=== PATIENT | female | born 1945 | race Caucasian/White ===

== ENCOUNTER 2019-08-10 09:45 | Outpatient (CLI) | payer MEDICARE, SELFPAY ==
--- NOTE | ~2019-08-10 | MM_ITS ---
EXAMINATION: MM screening [facility] BI w norma HISTORY: Screening mammogram TECHNIQUE: Craniocaudal and mediolateral oblique 3-D tomosynthesis images were obtained and synthetic 2-D images were generated. CAD analysis was submitted and interpreted. COMPARISON: Comparison to multiple prior studies sequentially, with oldest reviewed study dated 06/06. BREAST PARENCHYMAL COMPOSITION: There are scattered areas of fibroglandular density. FINDINGS: Stable benign-appearing left breast mass. There is no evidence of suspicious mass, calcific ation, or architectural distortion to suggest malignancy in either breast. There has been no suspicio us interval change. IMPRESSION: 1. No mammographic evidence of malignancy. 2. Recommend routine screening mammography in one year. BI-RADS Category 2: Benign finding(s). Reviewed, dictated and finalized at location A.
== END 2019-08-10 09:46 | disposition home or self-care (01) ==
PROVIDERS: PCP Internal Medicine; Visit Provider Obstetrics & Gynecology
DX: Z12.31 Encounter for screening mammogram for malignant neoplasm of breast (principal)
CPT/HCPCS: 77063; 77067

== ENCOUNTER 2020-08-14 09:54 | Outpatient (CLI) | payer MEDICARE, SELFPAY ==
--- NOTE | ~2020-08-14 | MM_ITS ---
EXAMINATION: MM screening [facility] BI w norma HISTORY: Screening mammogram TECHNIQUE: Craniocaudal and mediolateral oblique 3-D tomosynthesis images were obtained and synthetic 2-D images were generated. CAD analysis was submitted and interpreted. COMPARISON: 08/10/2019, 07/22/2018, 06/18/2017 BREAST PARENCHYMAL COMPOSITION: The breasts are almost entirely fatty. FINDINGS: There is no evidence of suspicious mass, calcification, or architectural distortion to sugg est malignancy in either breast. There has been no suspicious interval change. IMPRESSION: 1. No mammographic evidence of malignancy. 2. Recommend routine screening mammography in one year. BI-RADS Category 1: Negative Reviewed, dictated and finalized at location A.
== END 2020-08-14 09:55 | disposition home or self-care (01) ==
LOC: ANHIMG 09:58
PROVIDERS: PCP Physician Assistant; Visit Provider Obstetrics & Gynecology
DX: Z12.31 Encounter for screening mammogram for malignant neoplasm of breast (principal)
CPT/HCPCS: 77063; 77067

== ENCOUNTER 2021-09-27 10:12 | Outpatient (CLI) | payer MEDICARE, SELFPAY ==
--- NOTE | ~2021-09-27 | MM_ITS ---
EXAMINATION: MM screening [facility] BI w norma HISTORY: Screening mammogram TECHNIQUE: Craniocaudal and mediolateral oblique 3-D tomosynthesis images were obtained and synthetic 2-D images were generated. CAD analysis was submitted and interpreted. COMPARISON: 08/14/2020, 08/10/2019, 07/22/2018 bilateral screening mammogram examinations BREAST PARENCHYMAL COMPOSITION: There are scattered areas of fibroglandular density. FINDINGS: There is no evidence of suspicious mass, calcification, or architectural distortion to sugg est malignancy in either breast. There has been no suspicious interval change. IMPRESSION: 1. No mammographic evidence of malignancy. 2. Recommend routine screening mammography in one year. BI-RADS Category 1: Negative Reviewed, dictated and finalized at location A.
== END 2021-09-27 10:13 | disposition home or self-care (01) ==
LOC: ANHIMG 10:15
PROVIDERS: PCP Physician Assistant; Visit Provider Obstetrics & Gynecology
DX: Z12.31 Encounter for screening mammogram for malignant neoplasm of breast (principal)
CPT/HCPCS: 77063; 77067

== ENCOUNTER 2023-01-20 09:50 | Outpatient (CLI) | payer MEDICARE, SELFPAY ==
--- NOTE | ~2023-01-20 | MM_ITS ---
EXAMINATION: MM screening [facility] BI w [facility]a HISTORY: Screening TECHNIQUE: Craniocaudal and mediolateral oblique 3-D tomosynthesis images were obtained and synthetic 2-D images were generated. CAD analysis was submitted and interpreted. COMPARISON: Comparison to multiple prior studies sequentially, with oldest reviewed study dated 09/2016. BREAST PARENCHYMAL COMPOSITION: Breast composed of scattered areas of fibroglandular density FINDINGS: There is no evidence of suspicious mass, calcification, or architectural distortion to sugg est malignancy in either breast. There has been no suspicious interval change. IMPRESSION: 1. No mammographic evidence of malignancy. 2. Recommend routine screening mammography in one year. BI-RADS Category 1: Negative Reviewed, dictated and finalized at location A. N CERAMIST
== END 2023-01-20 09:51 | disposition home or self-care (01) ==
PROVIDERS: PCP Physician Assistant; Visit Provider Obstetrics & Gynecology
DX: Z12.31 Encounter for screening mammogram for malignant neoplasm of breast (principal)
CPT/HCPCS: 77063; 77067

== ENCOUNTER 2024-03-19 11:37 | Outpatient (CLI) | payer MEDICARE, SELFPAY ==
--- NOTE | ~2024-03-19 | MM_ITS ---
EXAMINATION: MM screening [facility] BI w [facility] HISTORY: Screening TECHNIQUE: Craniocaudal and mediolateral oblique 3-D tomosynthesis images were obtained and synthetic 2-D images were generated. CAD analysis was submitted and interpreted. COMPARISON: Comparison to multiple prior studies sequentially, with oldest reviewed study dated 06/18. BREAST PARENCHYMAL COMPOSITION: Not dense: There are scattered areas of fibroglandular density. FINDINGS: There is no evidence of suspicious mass, calcification, or architectural distortion to sugg est malignancy in either breast. There has been no suspicious interval change. IMPRESSION: 1. No mammographic evidence of malignancy. 2. Recommend routine screening mammography in one year. BI-RADS Category 1: Negative Reviewed, dictated and finalized at location B. HOUSE PICKER
--- OUTSIDE RECORDS SUMMARY | 2024-03-19 11:44 | XMS_ITS | Referral Summary ---
Author Organization [facility] [address] [place] [phone] Care Team Providers Care Electric Crane Operator Name Role Phone Juice Howard Primary Care Provider Encounters Date Type Department Care Team Description 01/11/2024 9:15 AM DIRECTOR OF MARKETING OPERATIONS Office Visit [facility] Medical [facility] Diabetes and Endocrinology [address] [place] [phone] Shannen Austin MD Hyperthyroidism (Primary Dx); Tremors of nervous system from Last 3 Months Allergies Active Allergy Reactions Criticality Noted Date Comments Amoxicillin Hives Medium 01/27/2023 Medications methIMAzole (TAPAZOLE) 10 mg tabletIndicatio ns:Hyperthyroid ism Take 1.5 tablets (15 mg total) by mouth daily 135 tablet 01/11/2024 Active propranoloL (INDERAL) 10 mg tabletIndicatio ns:Hyperthyroid ism,Tremors of nervous system Take 1 tablet (10 mg total) by mouth 2 (two) times a day 180 tablet 01/11/2024 Active Active Problems Problem Noted Date Diagnosed Date Tremors of nervous system 06/30/2023 Assessment & Plan (01/11/2024 9:41 AM DIRECTOR OF MARKETING OPERATIONS): Continue propranolol Assessment & Plan (06/30/2023 1:05 PM CDT): Worsening hand tremors off propranolol Suspect underlying essential tremor Restart propranolol 10 mg 1 tablet oral twice a day Hyperthyroidism 02/04/2023 Assessment & Plan (01/11/2024 9:40 AM DIRECTOR OF MARKETING OPERATIONS): History of hyperthyroidism most likely due to Graves disease Chronic, uncontrolled, worsening Reviewed and discussed patient's recent thyroid function lab results Plan to increase methimazole to 15 mg oral daily Repeat labs in 2 months and every 2 months Follow-up in 6 months Assessment & Plan (06/30/2023 1:05 PM CDT): Chronic, uncontrolled, progressively improving but still not at goal Reviewed and explain patient's recent thyroid lab results Based on her recent thyroid lab results advised patient to decrease her methimazole to 10 mg oral 4 days a week and take 1.5 tablet Thursday and Thursday Repeat thyroid function test in 6 weeks Assessment & Plan (04/01/2023 9:57 AM DIRECTOR OF MARKETING OPERATIONS): History of hyperthyroidism most likely due to Graves disease Chronic, uncontrolled, progressively improving Reviewed patient recent thyroid labs Plan to decrease propranolol to half a tablet oral twice a day and advised to stop in 10 days Decrease methimazole to 15 mg oral daily Repeat thyroid function test in 6 weeks Assessment & Plan (02/04/2023 5:18 PM DIRECTOR OF MARKETING OPERATIONS): Chronic, poorly controlled, worsening hyperthyroidism Performed thyroid ultrasound - noted diffuse hypervascularity Pt most likely has Grave's disease Recheck TFT include thyroid antibody Discussed Rx options - anti thyroid meds vs CHAWLA therapy vs surgery Start Propranolol 20 mg oral three times daily Start Methimazole 10 mg - take 2 tab oral daily Recheck thyroid labs today and in 4 weeks Follow up in 2 months Social History Tobacco Use Types Packs/Day Years Used Date Smoking Tobacco: Never Tobacco Cessation:Counseling Given: Not Answered PHQ-2 Answer Date Recorded PHQ-2 Total Score (If total score is 3 or more points, staff should administer the PHQ-9) 0 06/30/2023 Comments Unknown Sex and Gender Information Value Date Recorded Sex Assigned at Not on file Legal Sex Female 2:58 AM DIRECTOR OF MARKETING OPERATIONS Gender Identity Not on file Sexual Orientation Not on file Last Filed Vital Signs Vital Sign Reading Time Taken Comments Blood Pressure 130/72 01/11/2024 9:21 AM DIRECTOR OF MARKETING OPERATIONS Pulse 88 01/11/2024 9:21 AM DIRECTOR OF MARKETING OPERATIONS Temperature - - Respiratory Rate 16 01/11/2024 9:21 AM DIRECTOR OF MARKETING OPERATIONS Oxygen Saturation - - Inhaled Oxygen Concentration - - Weight 67.1 kg (148 lb) 01/11/2024 9:21 AM DIRECTOR OF MARKETING OPERATIONS Height 165.1 cm (5' 5 ) 01/11/2024 9:21 AM DIRECTOR OF MARKETING OPERATIONS Body Mass Index 24.63 01/11/2024 9:21 AM DIRECTOR OF MARKETING OPERATIONS Plan of Treatment Not on file Procedures Procedure Name Priority Date/Time Associated Diagnosis Comments T3, FREE Routine 01/06/2024 9:35 AM DIRECTOR OF MARKETING OPERATIONS Hyperthyroidism T4, FREE Routine 01/06/2024 9:35 AM DIRECTOR OF MARKETING OPERATIONS Hyperthyroidism TSH Routine 01/06/2024 9:35 AM DIRECTOR OF MARKETING OPERATIONS Hyperthyroidism from Last 3 Months Results * (ABNORMAL) T3, free (01/06/2024 9:35 AM DIRECTOR OF MARKETING OPERATIONS) Free T3 4.3(H) 2.3 - 4.2 pg/mL [facility] Blood 01/06/2024 9:35 AM DIRECTOR OF MARKETING OPERATIONS 01/06/2024 9:35 AM DIRECTOR OF MARKETING OPERATIONS Narrative [facility] - 01/07/2024 4:04 AM DIRECTOR OF MARKETING OPERATIONS FASTING:NO FASTING: NO Shannen Duval MD LAB BLOOD ORDERABLE S Final Result [facility] [address] [place] [address] * (ABNORMAL) TSH (01/06/2024 9:35 AM DIRECTOR OF MARKETING OPERATIONS) TSH 0.01(L) 0.40 - 4.50 mIU/L [facility] Blood 01/06/2024 9:35 AM DIRECTOR OF MARKETING OPERATIONS 01/06/2024 9:35 AM DIRECTOR OF MARKETING OPERATIONS Narrative [facility] - 01/07/2024 4:04 AM DIRECTOR OF MARKETING OPERATIONS FASTING:NO FASTING: NO us Shannen Duval MD LAB BLOOD ORDERABLE S Final Result [facility] [address] [place] [address] * T4, free (01/06/2024 9:35 AM DIRECTOR OF MARKETING OPERATIONS) Free T4 1.4 0.8 - 1.8 ng/dL [facility] Blood 01/06/2024 9:35 AM DIRECTOR OF MARKETING OPERATIONS 01/06/2024 9:35 AM DIRECTOR OF MARKETING OPERATIONS Narrative [facility] - 01/07/2024 4:04 AM DIRECTOR OF MARKETING OPERATIONS FASTING:NO FASTING: NO Shannen Duval MD LAB BLOOD ORDERABLE S Final Result [facility] [address] [place] [address] from Last 3 Months Insurance MEDICARE [facility] MEDICARE SUPPLEMENT Care Teams Electric Crane Operator Relationship Specialty Start Date End Date Juice Howard PA [address] [facility] [address] [place] [address] PCP - General Physician Vice Investigator 01/06/23
--- OUTSIDE RECORDS SUMMARY | 2024-03-19 11:44 | XMS_ITS | Clinical Summary ---
Author Organization [facility] [address] [place] [phone] Care Team Providers Care Pull Tab Dealer Name Role Phone Juice Howard Primary Care Provider Allergies Active Allergy Reactions Criticality Noted Date [...] 06/30/2023 Assessment & Plan (01/11/2024 9:41 AM MANAGER TRANSFUSION): Continue propranolol Assessment & Plan (06/30/2023 1:05 PM CDT): Worsening hand tremors off propranolol Suspect underlying essential tremor Restart propranolol 10 mg 1 tablet oral twice a day Hyperthyroidism 02/04/2023 Assessment & Plan (01/11/2024 9:40 AM MANAGER TRANSFUSION): History of hyperthyroidism most likely due to [...] weeks Assessment & Plan (04/01/2023 9:57 AM MANAGER TRANSFUSION): History of hyperthyroidism most likely due to Graves disease Chronic, uncontrolled, progressively improving Reviewed patient recent thyroid labs Plan to decrease propranolol to half a tablet oral twice a day and advised to stop in 10 days Decrease methimazole to 15 mg oral daily Repeat thyroid function test in 6 weeks Assessment & Plan (02/04/2023 5:18 PM MANAGER TRANSFUSION): Chronic, poorly controlled, worsening hyperthyroidism Performed thyroid [...] 4 weeks Follow up in 2 months Encounters Date Type Department Care Team Description 01/11/2024 9:15 AM MANAGER TRANSFUSION Office Visit [facility] Medical Group Diabetes and Endocrinology [address] [place] [phone] Shannen Austin MD Hyperthyroidism (Primary Dx); Tremors of nervous system from Last 3 Months Surgical History Surgery Date Site/Laterality Comments EYE SURGERY both eyes Medical History Medical History Date Comments Hyperthyroidism Family History Medical History Relation Name Comments Dementia Father Stroke Mother Relation Name Status Comments Father Mother Social History Tobacco Use Types Packs/Day Years Used Date Smoking Tobacco: Never Tobacco Cessation:Counseling Given: Not Answered PHQ-2 Answer Date Recorded PHQ-2 Total Score (If total score is 3 or more points, staff should administer the PHQ-9) 0 06/30/2023 Comments Unknown Sex and Gender Information Value Date Recorded Sex Assigned at Not on file Legal Sex Female 2:58 AM MANAGER TRANSFUSION Gender Identity Not on file Sexual Orientation Not on file Obstetrics History Last Filed Vital Signs Vital Sign Reading Time Taken Comments Blood Pressure 130/72 01/11/2024 9:21 AM MANAGER TRANSFUSION Pulse 88 01/11/2024 9:21 AM MANAGER TRANSFUSION Temperature - - Respiratory Rate 16 01/11/2024 9:21 AM MANAGER TRANSFUSION Oxygen Saturation - - Inhaled Oxygen Concentration - - Weight 67.1 kg (148 lb) 01/11/2024 9:21 AM MANAGER TRANSFUSION Height 165.1 cm (5' 5 ) 01/11/2024 9:21 AM MANAGER TRANSFUSION Body Mass Index 24.63 01/11/2024 9:21 AM MANAGER TRANSFUSION Plan of Treatment Health Maintenance Due Date Last Done Comments Hepatitis C Screening 1945 Osteoporosis Screening-Bone Density Scan 1945 DTaP/Tdap/Td Vaccine (1 - Tdap) 12/17/1955 Hepatitis B Screening 1962 Pneumococcal vaccine 65+ (1 of 1 - PCV) 2009 Well Visit 65+ 2009 Zoster Vaccine (2 of 3) 08/09/2012 06/14/2012 Covid-19 Vaccine (3 - season) 2023, 04/17/2020 Influenza Vaccine (#1) 2023 Depression Screening 06/29/2024 06/30/2023 Fall Risk Assessment 06/29/2024 06/30/2023, 04/01/19 24 Procedures Procedure Name Priority Date/Time Associated Diagnosis Comments T3, FREE Routine 01/06/2024 9:35 AM MANAGER TRANSFUSION Hyperthyroidism T4, FREE Routine 01/06/2024 9:35 AM MANAGER TRANSFUSION Hyperthyroidism TSH Routine 01/06/2024 9:35 AM MANAGER TRANSFUSION Hyperthyroidism from Last 3 Months Results * (ABNORMAL) T3, free (01/06/2024 9:35 AM MANAGER TRANSFUSION) Free T3 4.3(H) 2.3 - 4.2 pg/mL [facility] Blood 01/06/2024 9:35 AM MANAGER TRANSFUSION 01/06/2024 9:35 AM MANAGER TRANSFUSION Narrative [facility] - 01/07/2024 4:04 AM MANAGER TRANSFUSION FASTING:NO FASTING: NO us Shannen Duval MD LAB BLOOD ORDERABLE S Final Result [facility] [address] [phone] * (ABNORMAL) TSH (01/06/2024 9:35 AM MANAGER TRANSFUSION) TSH 0.01(L) 0.40 - 4.50 mIU/L [facility] Blood 01/06/2024 9:35 AM MANAGER TRANSFUSION 01/06/2024 9:35 AM MANAGER TRANSFUSION Narrative [facility] - 01/07/2024 4:04 AM MANAGER TRANSFUSION FASTING:NO FASTING: NO us Shannen Duval MD LAB BLOOD ORDERABLE S Final Result Performing Organization Address [facility]/ZIP Co de Phone Number [facility] [address] [place] [address] * T4, free (01/06/2024 9:35 AM MANAGER TRANSFUSION) Free T4 1.4 0.8 - 1.8 ng/dL [facility] Blood 01/06/2024 9:35 AM MANAGER TRANSFUSION 01/06/2024 9:35 AM MANAGER TRANSFUSION Narrative [facility] - 01/07/2024 4:04 AM MANAGER TRANSFUSION FASTING:NO FASTING: NO us Shannen Duval MD LAB BLOOD ORDERABLE S Final Result [facility] [address] [place] [address] from Last 3 Months Insurance MEDICARE [facility] MEDICARE SUPPLEMENT Care Teams Pull Tab Dealer Relationship Specialty Start Date End Date Juice Howard PA [address] [facility] [address] [place] [address] PCP - General Physician Cogeneration Technician 01/06/23
== END 2024-03-19 11:38 | disposition home or self-care (01) ==
LOC: ANHIMG 11:42
PROVIDERS: PCP Internal Medicine; Visit Provider Obstetrics & Gynecology
DX: Z12.31 Encounter for screening mammogram for malignant neoplasm of breast (principal)
CPT/HCPCS: 77063; 77067